=== PATIENT | female | born 1955 | race Caucasian/White ===

== ENCOUNTER 2020-05-17 17:07 | Emergency (ER) | payer MEDICARE ==
[~2020-05-17] VITALS: Ht 157.5 cm; Wt 85.4 kg
--- NOTE | 2020-05-17 18:02 | PHYS DOC ---
Past History Past Medical History: Other Additional Past Medical Histor: hypoglycemia Past Surgical History: Appendectomy, Cholecystectomy, , Hysterectomy, Oophorectomy, Tonsillectomy, Other Additional Past Surgical Histo: bilat rotator cuff Alcohol Use: None Adult General Chief Complaint Chief Complaint: BLOOD SUGAR PROBLEM HPI HPI Patient is a 65-year-old female who presents status post hypoglycemic episode. Patient reports that she suffered a hypoglycemic episode prior to arrival with reported blood sugar being 67. Patient felt classical hypoglycemic symptoms such as lightheadedness, fatigue, and mild diaphoresis prompting her to eat several cookies and cupcakes and attempt to raise her blood sugar levels. This was effective as she reportedly took her fingerstick blood sugar again 30 minutes after eating and it was greater than 150. Patient reports numerous episodes of hypoglycemia occurring ever since her gastric sleeve procedure years ago and was concerned prompting her to visit our ED for further evaluation today. Of note, patient has never lost consciousness, coma, or fall due to hypoglycemic episodes. In the last 2 weeks, the lowest her blood sugar has dropped to was 45. Patient has been having hypoglycemic episodes ever since her gastric sleeve surgery. Patient brought medication list with her today, denies any known history of diabetes or being on any medications that could induce hypoglycemia. Patient reports eating only 1 meal today around 6 hours prior to arrival before eating cupcakes etc. She admits she is not as hungry ever since her surgery and only eats "when I need to" Review of Systems Review of Systems Fourteen body systems of review of systems have been reviewed. See HPI for pertinent positives and negative responses, other rodrigues all other systems are negative, non-pertinent or non-contributory Allergies Allergies Allergies Coded Allergies Type Severity Reaction Last Updated Verified morphine Allergy Unknown 05/17/20 Yes Uncoded Allergies Type Severity Reaction Last Updated Verified sun Allergy Unknown Hives 05/17/20 Physical Exam Physical Exam Constitutional: Well developed, well nourished, no acute distress, non-toxic appearance. HENT: Normocephalic, atraumatic, bilateral external ears normal, oropharynx moist, no oral exudates, nose normal. Eyes: PERRLA, EOMI, conjunctiva normal, no discharge. Neck: Normal range of motion, no tenderness, supple, no stridor. Cardiovascular:Heart rate regular, sinus rhythm, no murmurs rubs or gallops Lungs & Thorax: Bilateral breath sounds clear to auscultation Abdomen: Bowel sounds normal, soft, no tenderness, no masses, no pulsatile masses. Nonsurgical abdomen, no peritoneal signs Skin: Warm, dry, no erythema, no rash. Back: No tenderness, no CVA tenderness. Extremities: No tenderness, no cyanosis, no clubbing, ROM intact, no edema. Neurologic: Alert and oriented X 3, grossly normal motor & sensory function, no focal deficits noted. Psychologic: Affect normal, judgement normal, mood normal. Current Patient Data Vital Signs Vital Signs Date Time Temp Pulse Resp B/P (MAP) Pulse Ox O2 Delivery O2 Flow Rate FiO2 05/17/20 17:07 96.0 77 18 118/52 (74) 99 Room Air Lab Results Laboratory Tests Test 05/17/20 17:19 Glucose (Fingerstick) 197 mg/dL (70-99) H EKG EKG [] Radiology/Procedures Radiology/Procedures [] Course & Med Decision Making Course & Med Decision Making Patient seen and examined on ED arrival by myself Vital signs obtained, grossly unremarkable Comprehensive history and physical exam grossly non-concerning for emergent surgical intervention or advanced diagnostic work-up Several [id number] fingerstick blood sugars obtained throughout ED duration and all greater than 120 As discussed in HPI, patient having recurrent hypoglycemic episodes ever since her gastric sleeve surgery, thorough medication review showed no high risk medications, patient admits eating 1-2 meals a day Discussed ED course with patient who is asymptomatic throughout visit, educated patient on importance of eating more than 1 meal a day with emphasis on complex carbs to ensure no spikes or crashes and blood sugar Discussed rare cases of recurrent hypoglycemia such as insulinoma; however, highly doubt this at this time given comprehensive history obtained Joint decision to discharge home in stable condition with supportive care advised and instructions on how to achieve consistent blood sugar levels while avoiding lows Patient to follow-up with PCP in upcoming 1 to 7 days for ER follow-up, can further discuss need for hypoglycemia laboratory work-up Strict return precautions discussed with good understanding by patient, all questions and concerns addressed prior to ER discharge Dragon Disclaimer Dragon Disclaimer This electronic medical record was generated, in whole or in part, using a voice recognition dictation system. Departure Departure: Impression: Primary Impression: Hypoglycemia after GI (gastrointestinal) surgery Disposition: HOME/RESIDENCE PRIOR TO ADM Condition: STABLE Referrals: TIERRA HARGROVE MD (PCP) Please call your PCP to schedule follow-up in upcoming 1 to 7 days to discuss ongoing hypoglycemic episodes Patient Instructions: Hypoglycemia (Low Blood Sugar), Hypoglycemia, [id number] Justification of Admission: Justification of Admission: Justification of Admission Dx: N/A BASIL BENSON DO May 17, 2020 18:02
[2020-05-17 18:27] VITALS: BP 105/47
== END 2020-05-17 18:25 | disposition home or self-care (01) ==
LOC: ER 17:07
DX: E16.1 Other hypoglycemia (principal); R42 Dizziness and giddiness; Z88.5 Allergy status to narcotic agent
CPT/HCPCS: 82947; 99283

== ENCOUNTER 2021-06-05 11:07 | Emergency (ER) | payer MEDICARE ==
[~2021-06-05] VITALS: Ht 157.5 cm; Wt 87.2 kg
--- NOTE | 2021-06-05 11:33 | PHYS DOC ---
Past History Past Medical History: Other Additional Past Medical Histor: hypoglycemia Past Surgical History: Appendectomy, Cholecystectomy, , Hysterectomy, Knee Replacement, Oophorectomy, Tonsillectomy, Other Additional Past Surgical Histo: bilat rotator cuff Alcohol Use: None Adult General Chief Complaint Chief Complaint: SYNCOPE HPI HPI Patient is a 66-year-old female presenting via EMS for presyncopal episode. Patient had an observed episode of choking while drinking clear liquids, daughter who was present reports patient swallowed liquid and immediately began coughing for less than 30 seconds until she "became unresponsive ". Patient's eyes apparently rolled to the back of her head and she did not respond to any verbal stimulus which concerned daughter prompting her to call EMS. This episode resolved in less than 60 seconds. No intervention was provided. Patient did not fall or hit head, she had no prodromal symptoms prior to coughing spell and is asymptomatic after. She has had no major changes in health or change in home medication. Review of Systems Review of Systems Fourteen body systems of review of systems have been reviewed. See HPI for pertinent positives and negative responses, other rodrigues all other systems are negative, non-pertinent or non-contributory Allergies Allergies Allergies Coded Allergies Type Severity Reaction Last Updated Verified morphine Allergy Unknown 05/17/20 Yes Uncoded Allergies Type Severity Reaction Last Updated Verified sun Allergy Unknown Hives 05/17/20 Physical Exam Physical Exam Constitutional: Well developed, well nourished, no acute distress, non-toxic appearance. HENT: Normocephalic, atraumatic, bilateral external ears normal, oropharynx moist, no oral exudates, nose normal. Eyes: PERRLA, EOMI, conjunctiva normal, no discharge. Neck: Normal range of motion, no tenderness, supple, no stridor. Cardiovascular: Heart rate regular, sinus rhythm, no murmurs rubs or gallops Lungs & Thorax: Bilateral breath sounds clear to auscultation Abdomen: Bowel sounds normal, soft, no tenderness, no masses, no pulsatile ma sses. Nonsurgical abdomen, no peritoneal signs Skin: Warm, dry, no erythema, no rash. Back: No tenderness, no CVA tenderness. Extremities: No tenderness, no cyanosis, no clubbing, ROM intact, no edema. Neurologic: Alert and oriented X 3, cranial nerves II through XII intact, normal motor & sensory function, no focal deficits noted. Psychologic: Affect normal, judgement normal, mood normal. Current Patient Data Vital Signs Vital Signs Date Time Temp Pulse Resp B/P (MAP) Pulse Ox O2 Delivery O2 Flow Rate FiO2 06/05/21 11:22 97.9 77 16 126/71 94 Room Air Lab Results Laboratory Tests Test 06/05/21 11:38 White Blood Count 9.0 x10^3/uL Red Blood Count 4.12 x10^6/uL Hemoglobin 12.2 g/dL Hematocrit 37.3 % Mean Corpuscular Volume 91 fL Mean Corpuscular Hemoglobin 30 pg Mean Corpuscular Hemoglobin Concent 33 g/dL Red Cell Distribution Width 14.0 % Platelet Count 225 x10^3/uL Neutrophils (%) (Auto) 57 % Lymphocytes (%) (Auto) 21 % Monocytes (%) (Auto) 8 % Eosinophils (%) (Auto) 14 % Basophils (%) (Auto) 1 % Neutrophils # (Auto) 5.1 x10^3uL Lymphocytes # (Auto) 1.8 x10^3/uL Monocytes # (Auto) 0.7 x10^3/uL Eosinophils # (Auto) 1.3 x10^3/uL Basophils # (Auto) 0.1 x10^3/uL Sodium Level 138 mmol/L Potassium Level 4.4 mmol/L Chloride Level 104 mmol/L Carbon Dioxide Level 27 mmol/L Anion Gap 7 Blood Urea Nitrogen 17 mg/dL Creatinine 0.5 mg/dL Estimated GFR (Cockcroft-Gault) 122.7 BUN/Creatinine Ratio 34 Glucose Level 93 mg/dL Calcium Level 8.1 mg/dL Total Bilirubin 0.3 mg/dL Aspartate Amino Transf (AST/SGOT) 32 U/L Alanine Aminotransferase (ALT/SGPT) 37 U/L Alkaline Phosphatase 128 U/L Troponin I Quantitative < 0.017 ng/mL Total Protein 5.7 g/dL Albumin 2.8 g/dL Albumin/Globulin Ratio 1.0 EKG EKG EKG ordered and interpreted by myself at 1140 hrs. as sinus rhythm at 82 bpm, unremarkable intervals, no axis deviation, no obvious ischemic findings, no STEMI Radiology/Procedures Radiology/Procedures EXAMINATION: XR CHEST 1V CLINICAL HISTORY: Presyncope EXAM DATE/TIME: 06/05/2021 11:18 AM COMPARISON: 12/11/2016 FINDINGS: Lines, Tubes, and Devices: None. Cardiomediastinal Silhouette: Normal heart size. Aortic atherosclerotic joe cification. Lungs and Pleura: No evidence of focal airspace consolidation or pleural effusion. Pulmonary vasculature unremarkable. Bones and Soft Tissues: Degenerative changes of the thoracic spine. Chronic elevation right hemidiaphragm with presumed bowel gas beneath the diaphragm, similar but more pronounced compared to prior study. Cholecystectomy clips. IMPRESSION: No evidence of acute cardiopulmonary abnormality. Electronically signed by: Frederic Childs DO (06/05/2021 11:43 AM) [id number] Heart Score C/O Chest Pain: No HEART Score for Chest Pain: HEART Score for Chest Pain Response (Comments) Value History Slighlty/Non-Suspicious 0 ECG Normal 0 Age > 65 2 Risk Factors 1 or 2 Risk Factors 1 Troponin < Normal Limit 0 Total 3 Risk Factors: Risk Factors: DM, Current or recent (<one month) smoker, HTN, HLP, family history of CAD, obesity. Risk Scores: Risk Factors: DM, Current or recent (<one month) smoker, HTN, HLP, family history of CAD, obesity. Course & Med Decision Making Course & Med Decision Making ABCs unremarkable. I disclosed entirety of ER findings and discussed most likely diagnosis of syncope of unknown etiology. Other diagnoses were discussed with patient such as ACS, stroke, pulmonary embolism etc. but all deemed less likely causes of patient's presentation. Patient symptoms occurred immediately after choking when drinking clear fluids. I recommended CT head but patient deferred as she continued to be asymptomatic throughout entirety of ER visit. As such, future plan of care discussed at length with need for close outpatient follow-up to review today's ER visit stressed. Strict return precautions were also discussed at length with good understanding by patient. Patient voiced understanding and agreement with the plan. Patient knows to come back for repeat evaluation if concerning signs or symptoms present prior to outpatient follow- up. Hemodynamically stable, ambulatory with her own cane, tolerating p.o. intake and well-appearing at time of disposition back home where she lives with daughter. Dragon Disclaimer Dragon Disclaimer This electronic medical record was generated, in whole or in part, using a voice recognition dictation system. Departure Departure: Impression: Primary Impression: Syncope Disposition: HOME / SELF CARE / HOMELESS Condition: STABLE Referrals: TIERRA HARGROVE MD (PCP) Patient Instructions: Choking, Adult, Syncope Additional Instructions: As disclosed prior to ER departure, your vitals, history, physical examination and comprehensive ER work-up was nonconcerning for any emergent or surgical issues. I disclosed all findings with you that were grossly unremarkable. I discussed need for CT head imaging but this was deferred. Your symptoms were likely caused by the choking episode when drinking. There is no indication for further diagnostic work-up and/or need for hospital admission at present and so, it is recommended you call your primary care physician first thing on Sunday to review your visit today. It is comforting that you will be returning home under the care of your daughter who will be able to watch her condition going forward. Any concerning signs or symptoms present prior to outpatient follow-up please do not hesitate to come back for repeat evaluation. It was a pleasure to take care of you and I wish you the best going forward BASIL BENSON DO Jun 05, 2021 11:33
--- NOTE | 2021-06-05 11:42 | EKG ---
[address] [id number] Test Date: 2021-06-05 Test Time: 11:32:31 Pat Name: ARASELI RICO Department: Room: Gender: F Thermometer Tester: MARY ELLEN : 1955 Requested By: BASIL BENSON Order Number: [id number] Reading MD: Measurements Intervals [place] Rate: 82 P: 24 KS: 186 QRS: 13 QRSD: 76 T: 0 QT: 354 QTc: 416 Interpretive Statements SINUS RHYTHM LOW LIMB LEAD VOLTAGE NO SPECIFIC ECG ABNORMALITIES RI6.02 No previous ECG available for comparison
--- NOTE | 2021-06-05 11:45 | RAD ---
EXAMINATION: XR CHEST 1V CLINICAL HISTORY: Presyncope EXAM DATE/TIME: 06/05/2021 11:18 AM COMPARISON: 12/11/2016 FINDINGS: Lines, Tubes, and Devices: None. Cardiomediastinal Silhouette: Normal heart size. Aortic atherosclerotic calcification. Lungs and Pleura: No evidence of focal airspace consolidation or pleural effusion. Pulmonary vasculat ure unremarkable. Bones and Soft Tissues: Degenerative changes of the thoracic spine. Chronic elevation right hemidiaph ragm with presumed bowel gas beneath the diaphragm, similar but more pronounced compared to prior lisset dy. Cholecystectomy clips. IMPRESSION: No evidence of acute cardiopulmonary abnormality. Electronically signed by: Frederic Childs DO (06/05/2021 11:43 AM) [id number]
[2021-06-05 12:01] LABS: BASO # 0.1 x10^3/uL (0.0-0.2); BASO % 1 % (0-3); EOS # 1.3 x10^3/uL (0.0-0.7); EOS % 14 % (0-3); HEMATOCRIT 37.3 % (36.0-47.0); HEMOGLOBIN 12.2 g/dL (12.0-15.5); LYMPH # 1.8 x10^3/uL (1.0-4.8); LYMPH % 21 % (24-48); MEAN CORPUSCULAR HEMOGLOBIN 30 pg (25-35); MEAN CORPUSCULAR HGB CONC 33 g/dL (31-37); MEAN CORPUSCULAR VOLUME 91 fL (79-100); MONO # 0.7 x10^3/uL (0.0-1.1); MONO % 8 % (0-9); NEUT # 5.1 x10^3uL (1.8-7.7); NEUT % 57 % (31-73); PLATELET COUNT 225 x10^3/uL (140-400); RED BLOOD COUNT 4.12 x10^6/uL (3.50-5.40)
[2021-06-05 12:08] LABS: CALCIUM 8.1 mg/dL (8.5-10.1); CREATININE 0.5 mg/dL (0.6-1.0); GFR 122.7; POTASSIUM 4.4 mmol/L (3.5-5.1)
[2021-06-05 12:13] LABS: ALBUMIN 2.8 g/dL (3.4-5.0); TOTAL BILIRUBIN 0.3 mg/dL (0.2-1.0); TOTAL PROTEIN 5.7 g/dL (6.4-8.2)
[2021-06-05 12:36] VITALS: BP 115/65
[2021-06-05] MEDS ORDERED: ACETAMINOPHEN 325 MG TABLET PO ONE (13:30)
== END 2021-06-05 13:43 | disposition home or self-care (01) ==
LOC: ER 11:07
DX: R55 Syncope and collapse (principal); R09.89 Other specified symptoms and signs involving the circulatory and respiratory systems; R05 Cough; Z88.5 Allergy status to narcotic agent
CPT/HCPCS: 36415; 71045; 80053; 84484; 85025; 93005; 99285